=== PATIENT | male | born 1990 | race Caucasian/White ===

== ENCOUNTER 2017-07-07 12:51 | Inpatient (IN) | payer BC, OTHER ==
[~2017-07-07] VITALS: Ht 175.3 cm; Wt 73.5 kg
[2017-07-10] MEDS ORDERED: MIRALAX 17 GM POWD.PACK PO PRN (23:15)
[2017-07-10] MEDS ORDERED: ACETAMINOPHEN 325 MG TABLET PO PRN (23:15)
[2017-07-10] MEDS ORDERED: LOPERAMIDE HCL 2 MG CAPSULE PO PRN ×2 (23:15)
[2017-07-10] MEDS ORDERED: CLONIDINE HCL 0.1 MG TABLET PO PRN (23:15)
[2017-07-10] MEDS ORDERED: MAG HYDROX/AL HYDROX/SIMETH 30 ML LIQUID UDC PO PRN (23:15)
[2017-07-10] MEDS ORDERED: LORAZEPAM 1 MG TABLET PO PRN (23:15)
[2017-07-10] MEDS ORDERED: ONDANSETRON 4 MG/2 ML VIAL IM PRN (23:15)
[2017-07-10] MEDS ORDERED: METHOCARBAMOL 750 MG TABLET PO PRN (23:15)
[2017-07-10] MEDS ORDERED: MAGNESIUM HYDROXIDE 30 ML LIQUID UDC PO PRN (23:15)
[2017-07-10] MEDS ORDERED: ONDANSETRON ODT 4 MG TAB.RAPDIS SL PRN (23:15)
[2017-07-10] MEDS ORDERED: diphenhydrAMINE 50 MG CAPSULE PO PRN (23:15)
[2017-07-10] MEDS ORDERED: HYDROXYZINE PAMOATE 25 MG CAPSULE PO PRN (23:15)
[2017-07-10] MEDS ORDERED: BUPRENORPHINE HCL 2 MG TAB.SUBL SL PRN (23:15)
[2017-07-10] MEDS ORDERED: DICYCLOMINE HCL 20 MG TABLET PO PRN (23:15)
--- NOTE | 2017-07-10 23:15 | NUR ---
Pre admission note Pt seen in intake office. Pt appears mildly intoxicated but in stable condition. V/S WNL. No s/s of distress noted at this time. Respirations even and unlabored. Policies on medication disposal explained to and understood by patient. Will admit to unit. Will continue to monitor.
--- NOTE | 2017-07-10 23:35 | NUR ---
Admission note Pt is a 26 yo male, A+Ox4, presenting to [facility] for Opiate/Meth dependence. Pt has NKA, is on full code status, and on Regular diet. Pt is 5'9" in height and 162 LBS in weight. Pt has medical HX of Left heel SX, Right shoulder SX, Rotator cuff SX, and pelvis FX. Pt has family HX of HTN and stroke from Father. Pt has no primary care provider. Pt has been using Heroin IV for 9 months (4 weeks currently), has reached a level of 0.5gm-1.5gm/daily, and last dose was 0.3gm on 07-10-17 @1800. Pt has been using Methamphetamine IV for 9 months (4 weeks currently), has reached a level of 0.125gm/daily, and last dose was 0.25gm on 07-10-17 @1800. Pt is not taking any home medications. This is the patients first time in treatment. Pt is a former cigarette smoker, last smoked about 4-5 years ago. Pt appears mildly intoxicated upon admission but in stable condition. V/S WNL. No s/s of distress noted at this time. Respirations even and unlabored. Will continue to monitor.
[2017-07-10 23:47] LABS: BASOPHILS % (AUTO) 0.3 % (0.0-2.0); EOSINOPHILS # (AUTO) 0.1 K/uL (0.0-0.7); EOSINOPHILS % (AUTO) 1.7 % (0.0-7.0); HEMOGLOBIN 13.9 g/dL (12.5-16.3); LYMPHOCYTES # (AUTO) 1.1 K/uL (20.0-40.0); LYMPHOCYTES % (AUTO) 14.7 % (20.5-51.5); MEAN CORPUSCULAR HEMOGLOBIN 30.3 uug (23.8-33.4); MEAN CORPUSCULAR HGB CONC 35 g/dL (32.5-36.3); MONOCYTES # (AUTO) 0.8 K/uL (2.0-10.0); MONOCYTES % (AUTO) 9.8 % (0.0-11.0); NEUTROPHILS # (AUTO) 5.7 K/uL (1.8-8.9); NEUTROPHILS % (AUTO) 73.5 % (38.5-71.5); PLATELET COUNT (AUTO) 311 K/uL (152-348); WHITE BLOOD COUNT (AUTO) 7.7 K/uL (3.6-10.2)
[2017-07-11] VITALS (7 sets, daily range): BP systolic 107–130; BP diastolic 62–75
[2017-07-11 00:07] LABS: ALANINE AMINOTRANSFERASE 102 U/L (16-63); ALKALINE PHOSPHATASE 81 U/L (50-136); ASPARTATE AMINOTRANSFERASE 40 U/L (15-37); BILIRUBIN,TOTAL 0.3 mg/dL (0.2-1.0); CARBON DIOXIDE 31 mmol/L (21-32); CHLORIDE 99 mmol/L (98-107); CREATININE 0.8 mg/dL (0.6-1.3); GLUCOSE 125 mg/dL (74-106); MAGNESIUM 1.9 mg/dL (1.8-2.4); POTASSIUM 4.1 mmol/L (3.5-5.1); TOTAL PROTEIN, SERUM 7.3 g/dL (6.4-8.2); UREA NITROGEN, BLOOD 8 mg/dL (7-18)
[2017-07-11 00:42] LABS: *AMPHETAMINE, URINE POSITIVE (NEGATIVE); *BARBITURATE, URINE NEGATIVE (NEGATIVE); *CANNABINOID, URINE NEGATIVE (NEGATIVE); *COCCAINE, URINE NEGATIVE (NEGATIVE); *OPIATE, URINE POSITIVE (NEGATIVE); *PHENCYCLIDINE SCREEN,URINE NEGATIVE (NEGATIVE)
[2017-07-11 00:52] LABS: ETHANOL < 3 MG/DL (0-0)
--- NOTE | 2017-07-11 06:51 | NUR ---
End of shift note Pt is a 26 yo male, A+Ox4, presenting to [facility] for Opiate/Meth dependence. Pt has NKA, is on full code status, and on Regular diet. Pt is on Fall precautions. Pt has medical HX of Left heel SX, Right shoulder SX, Rotator cuff SX, and pelvis FX. Pt is on PRN medications until further evaluation by MD in AM. Pt slept for a total of 4 HRS. Last COWS: 2 @0400. No s/s of distress noted at this time. Respirations even and unlabored. Will endorse to day shift nurse.
--- NOTE | 2017-07-11 07:23 | NUR ---
START OF SHIFT Received report from day shift nurse. Pt is lying in bed resting. He is a 26 yo male admitted to the [facility] on 07/10 for opioid dependence. He is A&O and ambulatory. NKA, full code status, on a regular diet. PMH of left heel surgery, right shoulder surgery, rotator cuff surgery, and pelvis surgery. On admission he reported using heroin 0.5-1.5 grams per day and methamphetamine 0.125 grams per day. Pt last used both substances on 07/10 at 1800. PRN's available for the management of withdrawal symptoms. He is observed in bed with restless legs. Fall precautions in place. Bed is down with call light in reach.
[2017-07-11] MEDS: IBUPROFEN 600 MG TABLET PO PRN (08:11)
--- NOTE | 2017-07-11 08:13 | NUR ---
PRN Clonidine and Motrin Pt reports feeling anxious and restless with a headache. B/P 130/72 and RR 120. Pt denies dizziness or SOB. PRN Clonidine and Motrin administered.
[2017-07-11] MEDS ORDERED: INFLUENZA VACCINE 2017-2018 0.5 ML DISP.SYRIN IM ONE (09:00)
[2017-07-11] MEDS ORDERED: TUBERCULIN,PURIF.PROT.DERIV. 5 TU/0.1 ML TEST ID ONE (09:00)
--- NOTE | 2017-07-11 09:15 | NUR ---
PRN Motrin and Clonidine reassessment PRN Motrin effective. Pt reports headache is relieved. PRN Clonidine somewhat effective. Pt reports feeling less restless. B/P 127/68 and HR 107.
[2017-07-11] MEDS: BUPRENORPHINE HCL 2 MG TAB.SUBL SL SCH ×2 (17:00→21:00)
--- NOTE | 2017-07-11 17:10 | NUR ---
Nursing Note Pt was ordered to start Subutex taper at 1700. His COWS score 6. He states, "I'm not ready for it yet". Dr. Bolivar made aware.
--- NOTE | 2017-07-11 19:22 | NUR ---
END OF SHIFT Report provided to day shift nurse. Pt is in his room resting. He is a 26 yo male admitted to [facility] on 07/10 for opioid dependence. He is A&O x4 and ambulatory. NKA, full code status, on a regular diet. PMH of left heel surgery, right shoulder surgery, rotator cuff surgery, and pelvis surgery. On admission he reported using heroin 0.5-1.5 grams per day and methamphetamine 0.125 grams per day. Pt last used both substances on 07/10 at 1800. PRN's available for the management of withdrawal symptoms. Taper has not started yet. Pt refused his first ordered dose of Subutex at 1700 due to minimal s/s of withdrawal. Dr. Bolivar aware. PRN Clonidine and Motrin administered. Fall precautions in place. Bed is down with call light in reach.
--- NOTE | 2017-07-11 19:23 | NUR ---
Start of shift note Received report from day shift nurse. Pt is a 26 yo male, A+Ox4, presenting to [facility] for Opiate/Meth dependence. Pt has NKA, is on full code status, and on Regular diet. Pt is on Fall precautions. Pt has medical HX of Left heel SX, Right shoulder SX, Rotator cuff SX, and pelvis FX. Pt is on a 5 day Subutex taper, tolerated well. No s/s of distress noted at this time. Respirations even and unlabored. Will continue to monitor.
[2017-07-12 00:41] VITALS: BP 128/71
--- NOTE | 2017-07-12 02:53 | NUR ---
PRN Subutex 4mg Pt c/o opiate withdrawal with COWS: 14. PRN Subutex 4mg given and tolerated well. Will reassess within 30 mins. Will continue to monitor.
[2017-07-12] MEDS ORDERED: BUPRENORPHINE HCL 2 MG TAB.SUBL SL ONE ×2 (03:00→03:06)
--- NOTE | 2017-07-12 03:13 | NUR ---
PRN Subutex 4mg Reassessment Pt noted with COWS: 7 at this time. No s/s of ASE/distress noted at this time. Respirations even and unlabored. will continue to monitor.
[2017-07-12] MEDS: IBUPROFEN 600 MG TABLET PO PRN ×2 (04:35→16:25)
--- NOTE | 2017-07-12 04:36 | NUR ---
PRN Motrin Pt c/o general body pain /10. PRN Motrin givne and tolerated well. Will reassess within 1 HR. Will continue to monitor.
[2017-07-12 04:40] VITALS: BP 137/86
--- NOTE | 2017-07-12 05:35 | NUR ---
PRN Motrin Reassessment Pt expresses reduction in pain to 3/5. No s/s of ASE/distress noted at this time. Respirations even and unlabored. Will continue to monitor.
[2017-07-12 06:06] LABS: HEPATITIS B SURFACE AG Negative (Negative)
--- NOTE | 2017-07-12 07:00 | NUR ---
End of shift note Pt is a 26 yo male, A+Ox4, presenting to [facility] for Opiate/Meth dependence. Pt has NKA, is on full code status, and on Regular diet. Pt is on Fall precautions. Pt has medical HX of Left heel SX, Right shoulder SX, Rotator cuff SX, and pelvis FX. Pt is on 5 day subutex taper, tolerated well. Pt was given PRN Subutex 4mg @0253 and PRN Motrin @0436. Pt slept for a total of 9 HRS. Last COWS: 7 @0400. No s/s of distress noted at this time. Respirations even and unlabored. Will endorse to day shift nurse.
--- NOTE | 2017-07-12 07:46 | NUR ---
BEGINNING OF SHIFT Patient endorsement report received from editorial cartoonist nurse, all pertinent information discussed. Patient is a 26 year old male with admitting Dx: Opiate dependence. and subspace use of: methamphetamine. Patient with ongoing 4 day Subutex taper as ordered. Patient received awake, alert and oriented x4. per editorial cartoonist patient slept for 9 hours. Patient received PRN: Subutex and Motrin as ordered. Patient with last cow score of: 7. Patient was educated regarding plan of care for the day and medication regimen. safety measures in place. call light kept with in reach. will continue to monitor.
[2017-07-12 09:06] VITALS: BP 118/70
[2017-07-12] MEDS: BUPRENORPHINE HCL 2 MG TAB.SUBL SL SCH ×3 (09:09→20:31)
[2017-07-12] MEDS ORDERED: METHYL SALICYLATE/MENTHOL CREAM 28 GM TUBE TOP PRN (11:15)
[2017-07-12 13:33] VITALS: BP 137/79
[2017-07-12] MEDS: BACLOFEN 10 MG TABLET PO SCH ×2 (14:06→20:31)
[2017-07-12] MEDS: GABAPENTIN 300 MG CAPSULE PO SCH ×2 (14:06→20:31)
--- NOTE | 2017-07-12 16:25 | NUR ---
PRN MOTRIN Patient c/o generalized body pain 12/31, provided with NPI with no relief, administered Motrin as ordered, will monitor effectiveness of medication.
--- NOTE | 2017-07-12 17:25 | NUR ---
MOTRIN REASSESSMENT Patient reports medication effective, current pain level 0/10, will continue to monitor.
[2017-07-12 17:37] VITALS: BP 131/74
--- NOTE | 2017-07-12 18:46 | NUR ---
END OF SHIFT Patient alert and oriented x4, vital signs were stable during shift. Patient compliant with therapeutic plan of care. Patient with admitting Dx: etoh dependence, Patient completed Ativan taper as ordered, well tolerated, no ASE noted. Patient is scheduled to be discharge tomorrow morning, noted self motivated towards sobriety. 0900 assessment patient presented with: tremors that can be felt but not seen, and mild anxiety with ciwa score of: 2; 1300 assessment patient presented with: tremors that can be felt but not seen, and mild anxiety with ciwa score of: 2; ; 1700 assessment patient presented with: tremors that can be felt but not seen, and mild anxiety with ciwa score of: 2. Patient encouraged adequate PO fluid intake as tolerated. Patient encouraged to attend group therapies/sessions to learn new coping skills to prevent relapse. Denies any SI/HI. Patient received PRN: Motrin, during shift, effective one hour post administration. Safety measures in place. Call light kept with in reach. Patient endorsed to shift mgr nurse, all pertinent information discussed.
[2017-07-12 20:00] VITALS: BP 133/86
--- NOTE | 2017-07-12 20:00 | NUR ---
Start of Shift Pt is a 26 year old male admitted for Opiate dependence, placed on 4 day Subutex taper. Pt reported using Heroin IV 0.5g 1.5g/daily and Methamphetamine 0.125g/daily. PMH: left heel sx, right shoulder sx, rotator cuff sx and pelvis sx. NKA, regular diet, fall precautions and full code. Upon assessment, pt reports feeling anxious, skin is flushed, nose runny with eyes tearing, stomach cramps, joint/muscle aches, tremors felt upon touch, Respirations even/unlabored, denies SOB/chest pain, denies n/v/d, medications due. Safety measures in place, call light within reach, side rails up x2, bed locked and in low positions. Will continue to monitor.
[2017-07-12] MEDS: CLONIDINE HCL 0.1 MG TABLET PO SCH (20:31)
[2017-07-12] MEDS: TRAZODONE 100 MG TABLET PO SCH (20:31)
[2017-07-13] VITALS: BP 110/73
[2017-07-13 04:00] VITALS: BP 122/71
--- NOTE | 2017-07-13 04:00 | NUR ---
COWS deferred d/t sleeping, to assess while pt is awake as ordered. BP 122/71, pulse 71, resp 17, SpO2 99% room air, temp 97.[address], will continue to monitor.
[2017-07-13] MEDS: IBUPROFEN 600 MG TABLET PO PRN ×2 (06:53→14:19)
--- NOTE | 2017-07-13 06:53 | NUR ---
Motrin 600mg PRN administered for reports of back pain, rated 5/10. Will endorsed onto day shift nurse to monitor effectiveness.
--- NOTE | 2017-07-13 07:08 | NUR ---
End of Shift Pt is a 26 year old male admitted for Opiate dependence, placed on 4 day Subutex taper. Pt reported using Heroin IV 0.5g 1.5g/daily and Methamphetamine 0.125g/daily. PMH: left heel sx, right shoulder sx, rotator cuff sx and pelvis sx. NKA, regular diet, fall precautions and full code. During shift, pt reported feeling anxious, skin flushed, nose runny with eyes tearing, stomach cramps, joint/muscle aches, tremors felt upon touch scheduled taper medications administered, COWS 7. Motrin 600mg PRN administered. Pt slept for 10 hours, intake of ml 500 PO, voids x0 and stool x0. Safety measures in place, call light within reach, side rails up x2, bed locked and in low positions. Endorsed to day shift nurse.
--- NOTE | 2017-07-13 07:22 | NUR ---
BEGINNING OF SHIFT Patient endorsement report received from night warehouse manager nurse, all pertinent information discussed. Patient is a 26 year old male with admitting Dx: Opiate dependence. and subspace use of: methamphetamine. Patient with ongoing 4 day Subutex taper as ordered. Patient received awake, alert and oriented x4. per night warehouse manager patient slept for 10 hours. Patient received PRN: Motrin as ordered. Patient with last cow score of: 7. Patient was educated regarding plan of care for the day and medication regimen. safety measures in place. call light kept with in reach. will continue to monitor.
[2017-07-13 08:14] VITALS: BP 131/64
[2017-07-13] MEDS: GABAPENTIN 300 MG CAPSULE PO SCH ×2 (08:52→14:19)
[2017-07-13] MEDS: BACLOFEN 10 MG TABLET PO SCH ×3 (08:52→20:15)
[2017-07-13] MEDS: CLONIDINE HCL 0.1 MG TABLET PO SCH ×3 (08:56→20:16)
[2017-07-13] MEDS ORDERED: BUPRENORPHINE HCL 2 MG TAB.SUBL SL SCH (09:00)
--- NOTE | 2017-07-13 10:21 | NUR ---
Therapist prompted client about group times. Client stated he will try to attend all groups.
--- NOTE | 2017-07-13 12:13 | NUR ---
PRN TYLENOL Patient reports lower back pain 5/10, provided with NPI, administered Tylenol 650mg PO as ordered, will monitor effectiveness of medication.
--- NOTE | 2017-07-13 12:22 | NUR ---
PRN ELIANA Patient reports lower back pain 5/10, provided with NPI, administered Bengcem as ordered, will monitor effectiveness of medication.
[2017-07-13 12:29] VITALS: BP 110/74
--- NOTE | 2017-07-13 13:13 | NUR ---
TYLENOL REASSESSMENT Patient reports medication effective, current pain level 0/10, will continue to monitor.
--- NOTE | 2017-07-13 13:22 | NUR ---
[facility] REASSESSMENT Patient reports medication effective, current pain level 0/10, will continue to monitor.
[2017-07-13] MEDS: BUPRENORPHINE HCL 2 MG TAB.SUBL SL SCH ×2 (14:18→20:16)
--- NOTE | 2017-07-13 14:19 | NUR ---
PRN MOTRIN Patient c/o back pain 12/31, provided with NPI with no relief, administered Motrin as ordered, will monitor effectiveness of medication.
--- NOTE | 2017-07-13 15:19 | NUR ---
MOTRIN REASSESSMENT Patient reports medication effective, current pain level 0/10, will continue to monitor.
[2017-07-13 17:52] VITALS: BP 124/67
--- NOTE | 2017-07-13 18:59 | NUR ---
END OF SHIFT Patient alert and oriented x4, vital signs were stable during shift. Patient compliant with therapeutic plan of care. Patient continues with ongoing 4 day Subutex taper as ordered, well tolerated, no ASE noted. Detox medication effective at reducing withdrawal symptoms. 0900 assessment patient presented with: c/o chills, difficultly sitting still, dilated pupils, mild bone and joint aches, and nasal stuffiness with cow score of: 6; 1300 assessment patient presented with: heart rate of 85, difficulty sitting still, dilated pupils, mild bone and joint aches, and mild anxiety with cow score of: 5; 1700 assessment patient presented with: heart rate of 86, difficulty sitting still, dilated pupils, mild bone and joint aches, and mild anxiety with cow score of: 5. Patient encouraged adequate PO fluid intake as tolerated. Patient encouraged to attend group therapies/sessions to learn new coping skills to prevent relapse. Denies any SI/HI. Patient received PRN: Motrin, Bengay, and Tylenol, during shift, effective one hour post administration. Safety measures in place. Call light kept with in reach. Patient endorsed to orthotics assistant nurse, all pertinent information discussed.
[2017-07-13 20:00] VITALS: BP 113/69
--- NOTE | 2017-07-13 20:00 | NUR ---
Start of Shift Pt is a 26 year old male admitted for Opiate dependence, placed on 4 day Subutex taper. Pt reported using Heroin IV 0.5g 1.5g/daily and Methamphetamine 0.125g/daily. PMH: left heel sx, right shoulder sx, rotator cuff sx and pelvis sx. NKA, regular diet, fall precautions and full code. Upon assessment, pt reports feeling restless, nose runny with eyes tearing, joint/muscle aches, tremors felt upon touch, Respirations even/unlabored, denies SOB/chest pain, denies n/v/d. Safety measures in place, call light within reach, side rails up x2, bed locked and in low positions. Will continue to monitor.
[2017-07-13] MEDS: TRAZODONE 100 MG TABLET PO SCH (20:15)
[2017-07-13] MEDS ORDERED: GABAPENTIN 300 MG CAPSULE PO SCH (21:00)
[2017-07-14] VITALS: BP 118/73
[2017-07-14 04:00] VITALS: BP 106/71
--- NOTE | 2017-07-14 04:00 | NUR ---
COWS deferred d/t sleeping, to assess while pt is awake as ordered. BP 106/71, pulse 81, resp 16, SpO2 97% room air, temp 97.[address], will continue to monitor.
--- NOTE | 2017-07-14 07:00 | NUR ---
End of Shift Pt is a 26 year old male admitted for Opiate dependence, placed on 4 day Subutex taper. Pt reported using Heroin IV 0.5g 1.5g/daily and Methamphetamine 0.125g/daily. PMH: left heel sx, right shoulder sx, rotator cuff sx and pelvis sx. NKA, regular diet, fall precautions and full code. During shift, pt reported feeling restlessness, nose runny with eyes tearing, joint/muscle aches, tremors felt upon touch scheduled taper medications administered, COWS 6. No PRN medications administered during shift. Pt slept for 9 hours, intake of 750 ml PO, voids x2 and stool x0. Safety measures in place, call light within reach, side rails up x2, bed locked and in low positions. Endorsed to day shift nurse.
--- NOTE | 2017-07-14 07:24 | NUR ---
BEGINNING OF SHIFT Patient endorsement report received from fast food shift lead nurse, all pertinent information discussed. Patient is a 26 year old male with admitting Dx: Opiate dependence. and substace use of: methamphetamine. Patient with ongoing 4 day Subutex taper as ordered. Patient received awake, alert and oriented x4. per fast food shift lead patient slept for 9 hours. Patient received no PRN medications. Patient with last ciwa score of: 6. Patient was educated regarding plan of care for the day and medication regimen. safety measures in place. call light kept with in reach. will continue to monitor.
[2017-07-14 08:06] VITALS: BP 121/72
[2017-07-14] MEDS: GABAPENTIN 300 MG CAPSULE PO SCH ×3 (08:42→20:50)
[2017-07-14] MEDS: CLONIDINE HCL 0.1 MG TABLET PO SCH ×3 (08:42→20:51)
[2017-07-14] MEDS: IBUPROFEN 600 MG TABLET PO PRN (08:42)
[2017-07-14] MEDS: BACLOFEN 10 MG TABLET PO SCH ×3 (08:42→20:51)
--- NOTE | 2017-07-14 08:42 | NUR ---
PRN MOTRIN Patient c/o back pain 12/31, provided with NPI with no relief, administered Motrin as ordered, will monitor effectiveness of medication.
[2017-07-14] MEDS: BUPRENORPHINE HCL 2 MG TAB.SUBL SL SCH ×3 (08:43→20:50)
--- NOTE | 2017-07-14 09:42 | NUR ---
MOTRIN REASSESSMENT Patient reports medication effective, current pain level 0/10, will continue to monitor.
--- NOTE | 2017-07-14 10:00 | NUR ---
ENDORSED CARE Patient endorsed to staff nurse, all pertinent information discussed. All information given. Patient not in distress at this time, vital signs WNL.
[2017-07-14 12:00] VITALS: BP 129/77
[2017-07-14] MEDS: KETOROLAC TROMETHAMINE 30 MG INJ IM PRN (13:08)
[2017-07-14 16:00] VITALS: BP 112/56
--- NOTE | 2017-07-14 18:49 | NUR ---
End of Shift Report given to second shift supervisor nurse. Pt is a 26 year old male admitted for Opiate dependence, placed on 4 day Subutex taper tolerating well. Pt reports No known allergies, is Full Code and on a Regular Diet, placed on fall and seizure precautions. Pts VS monitored closely q 4 hours. Withdrawal symptoms were closely monitored. Initial COWS 5 . Patient encouraged adequate PO fluid intake as tolerated. Patient presented with tremors and anxiety during the day. Last COWS 3. Per patient, Subutex been helping him with his withdrawal symptoms. Pt ate all of his meals. Pt received PRN medications Toradol IM for pain medication was effective, Pt is in stable condition. Pt encouraged to drink more fluids to help facilitate with detox process. Patient encouraged to attend group therapies/sessions to learn new coping skills to recent relapse, patient denies SI/HI. Participated in group and therapy sessions. All needs met and attended
[2017-07-14 20:00] VITALS: BP 117/78
--- NOTE | 2017-07-14 20:00 | NUR ---
Start of Shift Pt is a 26 year old male admitted for Opiate dependence, placed on 4 day Subutex taper. Pt reported using Heroin IV 0.5g 1.5g/daily and Methamphetamine 0.125g/daily. PMH: left heel sx, right shoulder sx, rotator cuff sx and pelvis sx. NKA, regular diet, fall precautions and full code. Upon assessment, pt reports feeling restless, with muscle aches throughout body, respirations even/unlabored, denies SOB/chest pain, denies n/v/d. Safety measures in place, call light within reach, side rails up x2, bed locked and in low positions. Will continue to monitor.
[2017-07-14] MEDS: TRAZODONE 100 MG TABLET PO SCH (20:51)
--- NOTE | 2017-07-15 | NUR ---
COWS deferred d/t sleeping, to assess while pt is awake as ordered. Pt refused to be woken up for 0000 VS Safety measures in place, will continue to monitor.
--- NOTE | 2017-07-15 04:00 | NUR ---
COWS deferred d/t sleeping, to assess while pt is awake as ordered. Pt refused to be woken up for [address], will continue to monitor.
--- NOTE | 2017-07-15 07:00 | NUR ---
End of Shift Pt is a 26 year old male admitted for Opiate dependence, placed on 4 day Subutex taper. Pt reported using Heroin IV 0.5g 1.5g/daily and Methamphetamine 0.125g/daily. PMH: left heel sx, right shoulder sx, rotator cuff sx and pelvis sx. NKA, regular diet, fall precautions and full code. During shift, pt reported feeling restless, with muscle aches throughout body scheduled taper medications administered during shift, effective in management of s/s of withdrawal as reported per pt, COWS 3. No PRN medications administered during shift. Pt slept for 11 hours, intake of 250 ml PO, voids x1 and stool x0. Safety measures in place, call light within reach, side rails up x2, bed locked and in low position. Endorsed to day shift nurse.
--- NOTE | 2017-07-15 07:50 | NUR ---
START OF SHIFT RECEIVED PT RESTING IN BED WITH FLAT AFFECT, A/O X4, RESPIRATIONS EVEN AND UNLABORED. PT REPORTS HAVING GENERALIZED BODY ACHES AND BACK PAIN BEING THE WORST. PT REPORTS FEELING RESTLESS AND HAVE NOT HAD GOOD SLEEP THE NIGHT BEFORE. DENIES SOB, AND N/V. ENCOURAGED PT TO DRINK MORE FLUIDS TO FACILITATE DETOX PROCESS. SIDE RAILS UP X2, BED IN LOWEST POSITION. CALL LIGHT WITHIN REACH. WILL CONTINUE TO MONITOR AND PROVIDE SUPPORT.
[2017-07-15 08:00] VITALS: BP 113/72
[2017-07-15] MEDS ORDERED: BUPRENORPHINE HCL 2 MG TAB.SUBL SL SCH (09:00)
[2017-07-15] MEDS: GABAPENTIN 300 MG CAPSULE PO SCH ×3 (09:00→21:24)
[2017-07-15] MEDS: BACLOFEN 10 MG TABLET PO SCH ×3 (09:02→21:24)
[2017-07-15] MEDS: CLONIDINE HCL 0.1 MG TABLET PO SCH ×3 (09:03→21:31)
--- NOTE | 2017-07-15 09:06 | NUR ---
PRN PT C/O HEARTBURN AND REQUESTED MAALOX. MAALOX PO PRN GIVEN. WILL CONTINUE TO MONTIOR.
[2017-07-15] MEDS: KETOROLAC TROMETHAMINE 30 MG INJ IM PRN (09:18)
--- NOTE | 2017-07-15 09:18 | NUR ---
PRN PT C/O OF SEVERE BACK PAIN 04/02. TORADOL 30 MG IM INJ PRN GIVEN.
--- NOTE | 2017-07-15 09:48 | NUR ---
REASSESSMENT PT STATED MEDICATION WAS EFFECTIVE UPON REASSESSMENT. WILL CONTINUE TO MONITOR. Addendum: 07/15/17 at 1811 by JUAN DIEGO GRUBBS RN FOR TORADOL
--- NOTE | 2017-07-15 10:06 | NUR ---
REASSESSMENT PT STATED THE MAALOX WAS SLIGHTLY EFFECTIVE. WILL CONTINUE TO MONITOR AND PROVIDE SUPPORT.
[2017-07-15 12:00] VITALS: BP 109/66
--- NOTE | 2017-07-15 14:24 | NUR ---
PRN PT C/O STOMACH CRAMPS AND ADMINISTERED DICYCLOMINE PO PRN. WILL CONTINUE TO MONITOR.
[2017-07-15] MEDS ORDERED: METH-406 PO (14:53)
[2017-07-15] MEDS ORDERED: GABA-534 PO (14:53)
[2017-07-15] MEDS ORDERED: HYDR-3895 PO (14:53)
[2017-07-15] MEDS ORDERED: DIPH50CA37 PO (14:53)
[2017-07-15] MEDS ORDERED: DICY20TA28 PO (14:53)
[2017-07-15] MEDS ORDERED: IBUP-1955 PO (14:53)
[2017-07-15] MEDS ORDERED: CLON0.1T14 PO (14:53)
[2017-07-15] MEDS ORDERED: TRAZ-147 PO (14:53)
--- NOTE | 2017-07-15 15:25 | NUR ---
REASSESSMENT PT IS RESTING IN BED WITH HIS EYES CLOSED AT THIS TIME. WILL CONTINUE TO MONITOR.
[2017-07-15 16:00] VITALS: BP 104/57
--- NOTE | 2017-07-15 19:27 | NUR ---
END OF SHIFT PT RESTING IN BED WITH FLAT AFFECT, A/O X4, RESPIRATIONS EVEN AND UNLABORED. PT REPORTS HAVING GENERALIZED BODY ACHES AND STOMACH DISCOMFORT. PT REPORTS FEELING RESTLESS AND MILD ANXIETY. DENIES SOB, AND N/V. PT FINISHED SUBUTEX TAPER TODAY AND HE IS TO BE D/C TOMORROW. ENCOURAGED PT TO DRINK MORE FLUIDS TO FACILITATE DETOX PROCESS. SIDE RAILS UP X2, BED IN LOWEST POSITION. CALL LIGHT WITHIN REACH. WILL GIVE ALL ENDORSEMENT AND PERTINENT INFORMATION TO BOX STACKER NURSE.
--- NOTE | 2017-07-15 19:30 | NUR ---
Start of Shift Pt is a 26 year old male admitted for Opiate dependence, has completed 4 day Subutex taper and is scheduled for DC tomorrow.Pt is A/O X 4,has NKA, regular diet, fall precautions and full code.Pt received in stable condition,sleeping in bed,breathing is even and non labored,no s/s of distress noted. Safety measures in place, call light within reach, side rails up x2, bed locked and in low positions. Will continue to monitor.
[2017-07-15 20:00] VITALS: BP 125/73
[2017-07-15] MEDS: TRAZODONE 100 MG TABLET PO SCH (21:24)
--- NOTE | 2017-07-16 | NUR ---
V/S REFUSED; COWS DEFERRED. PT IS IN DEEP SLEEP. DID NOT WANT TO BE WOKEN UP FOR V/S IF SLEEPING.COWS DEFERRED DUE TO SLEEP.BREATHING IS EVEN AND NON LABORED.NO S/S OF DISTRESS NOTED,WILL CONTINUE TO MONITOR.
--- NOTE | 2017-07-16 04:00 | NUR ---
V/S REFUSED; COWS DEFERRED. PT REMAINS FAST ASLEEP. DID NOT WANT TO BE WOKEN UP FOR V/S IF SLEEPING.COWS DEFERRED DUE TO SLEEP.BREATHING IS EVEN AND NON LABORED.NO S/S OF DISTRESS NOTED,WILL CONTINUE TO MONITOR.
--- NOTE | 2017-07-16 06:48 | NUR ---
End of Shift Pt is a 26 year old male admitted for Opiate dependence, has completed 4 day Subutex taper and is scheduled for DC today.Pt is A/O X 4,has NKA, regular diet, fall precautions and full code.Pt is in stable condition,sleeping in bed,breathing is even and non labored,no s/s of distress noted.No PRN meds given this shift;Pt slept 11 hrs,fluid intake was 100mls,no urine voided. Safety measures in place, call light within reach, side rails up x2, bed locked and in low positions. Will continue to monitor. Addendum: 07/16/17 at 0653 by IVANIA LUONG RN LAST COWS=3.
--- NOTE | 2017-07-16 07:30 | NUR ---
START OF SHIFT NOTE Received report from night nurse, 26 year old male admitted for Opiate dependence. Patient completed his 4 day Subutex taper tolerated well. Per endorsement pt did not receive any PRN'S last Last CIWA score was 3, slept for 11 hours, schedule for discharge today. Patient received awake, alert and oriented x4. Patient was educated regarding plan of care for the day and medication regimen. Safety measures in place. call light with in reach. Will continue to monitor.
[2017-07-16 08:00] VITALS: BP 112/66
[2017-07-16] MEDS: BACLOFEN 10 MG TABLET PO SCH (08:56)
[2017-07-16] MEDS: GABAPENTIN 300 MG CAPSULE PO SCH (08:56)
[2017-07-16 08:57] VITALS: BP 115/72
[2017-07-16] MEDS: CLONIDINE HCL 0.1 MG TABLET PO SCH (08:57)
--- NOTE | 2017-07-16 09:15 | NUR ---
DISCHARGE NOTE Patient is in stable condition. Vital signs WNL,Patient is alert oriented x4, Skin intact warm and dry tot touch. Patient denies any SI/HI ideations. All discharge paper work done signed and dated. Patient educated about discharge instructions, Pt verbalized understanding. Patient 's last COWS score was 2. Patient discharged from [facility] on 07/16/17 at 0915. Patient left the building with all of his belongings and prescriptions, Patient did not bring any medications with him to the unit. has been contracted and notified of Pt's discharge.
== END 2017-07-16 09:15 | disposition other institution (70) | DRG 895 ==
LOC: SRC 07-08 08:57 → UNDOADMIN 07-08 08:57 → SRC 07-10 22:27
PROVIDERS: ADMIT Internal Medicine; ATTEND Internal Medicine
PROC: HZ2ZZZZ Detoxification Services for Substance Abuse Treatment (ICD-10-PCS; principal; 2017-07-10)
PROC: HZ31ZZZ Individual Counseling for Substance Abuse Treatment, Behavioral (ICD-10-PCS; 2017-07-12)
PROC: HZ41ZZZ Group Counseling for Substance Abuse Treatment, Behavioral (ICD-10-PCS; 2017-07-13)
DX: F11.23 Opioid dependence with withdrawal (principal); F15.288 Other stimulant dependence with other stimulant-induced disorder; F15.220 Other stimulant dependence with intoxication, uncomplicated; F41.9 Anxiety disorder, unspecified; Z81.1 Family history of alcohol abuse and dependence; Z82.49 Family history of ischemic heart disease and other diseases of the circulatory system; R73.9 Hyperglycemia, unspecified; R74.0 Nonspecific elevation of levels of transaminase and lactic acid dehydrogenase [LDH]
CPT/HCPCS: 36415; 70030-TC; 80307; 80324; 80361; 83735; 85025; 86580; 86592; 86705; 86803; 87340; 87806; 90686; A4663; G0480; J1885

== ENCOUNTER 2017-09-19 08:12 | Inpatient (IN) | payer BC, OTHER ==
[~2017-09-19] VITALS: Ht 177.8 cm; Wt 74.8 kg
[~2017-09-19 08:12] MED LIST: CLON0.1T14 PO; DICY20TA28 PO; DIPH50CA37 PO; GABA-534 PO; HYDR-3895 PO; IBUP-1955 PO; METH-406 PO; TRAZ-147 PO
[2017-09-19 21:08] VITALS: BP 137/86
--- NOTE | 2017-09-19 21:08 | NUR ---
PRE-ADMISSION VS BP-137/86 T-97.9 P-105, R-18 PA-0/10. SpO2 AT 97% IN RA. PATIENT AMBULATORY AND GAIT IS STEADY. SPEECH IS CLEAR AND ANSWER QUESTIONS APPROPRIATELY. NO KNOWN ALLERGIES TO FOOD OR MEDICATION. NO SEIZURE HISTORY. PATIENT STATES HES HERE FOR HEROIN IV AND METHAMPHETAMINE IV. WILL CONTINUE ADMISSION ON 3RD FLOOR
[2017-09-19 21:16] LABS: *AMPHETAMINE, URINE POSITIVE (NEGATIVE); *BARBITURATE, URINE NEGATIVE (NEGATIVE); *CANNABINOID, URINE NEGATIVE (NEGATIVE); *COCCAINE, URINE NEGATIVE (NEGATIVE); *OPIATE, URINE POSITIVE (NEGATIVE); *PHENCYCLIDINE SCREEN,URINE NEGATIVE (NEGATIVE)
--- NOTE | 2017-09-19 21:24 | NUR ---
ADMISSION NOTE PATIENT IS A 27 YEAR OLD MALE ADMITTED TO [facility] FOR SUPERVISED WITHDRAWAL FROM OPIATE. HEIGHT IS 510 AND WEIGHT IS 165 LBS. BODY CHECK DONE . SKIN INTACT. RESPIRATION EVEN AND UNLABORED. LUNGS CLEAR AND ABDOMEN SOFT AND NON-DISTENDED. BOWEL SOUNDS ACTIVE ON ALL QUADRANT. PATIENT REPORTS PMH OF ANXIETY, DEPRESSION, PTSD, RIGHT SHOULDER SURGERY AND LEFT HEEL SURGERY. PATIENT IS HERE BECAUSE HE STATES I WILL IF I DON'T COME HERE". SUBSTANCE ABUSE HISTORY 1.HEROIN IV-STARTED USING AT AGE 25. HE INJECTS 1-3 GRAMS DAILY FOR A MONTH . LAST USE WAS GRAM AT 2 PM ON 09/19/17 2.METHAMPHETAMINE IV-STARTED USING AT AGE 25. HE INJECTS 1/4-1/2 GRAM DAILY FOR A MONTH. LAST USE WAS GRAM AT 2-4 PM ON 09/19/17 TREATMENT HISTORY 1.[facility]- JUL 2017 2.[facility]-07/10/17-07/16/17 PATIENT REQUESTED TO BE FULL CODE AND ON REGULAR DIET. PATIENT DOES NOT HAVE PCP. DENIES SI/HI. HIS LONGEST PERIOD OF SOBRIETY WAS 35 DAYS IN MAR 2017. PATIENT INTOXICATED. PATIENT ANXIOUS, FLUSHED, FIDGETY AND RESTLESS . COWS 4. PATIENT HAD FLU VACCINE ON 06/2017. PATIENT REFUSED PNEUMONIA VACCINE , EXPLAINED RISKS/BENEFITS BUT STILL REFUSED. PLACED ON FALL PRECAUTION. SAFETY MEASURES IN PLACE. CALL LIGHT IN REACH. WILL CONTINUE TO MONITOR.
[2017-09-19] MEDS ORDERED: MAGNESIUM HYDROXIDE 30 ML LIQUID UDC PO PRN (21:30)
[2017-09-19] MEDS ORDERED: ONDANSETRON ODT 4 MG TAB.RAPDIS SL PRN (21:30)
[2017-09-19] MEDS ORDERED: ACETAMINOPHEN 325 MG TABLET PO PRN (21:30)
[2017-09-19] MEDS ORDERED: MIRALAX 17 GM POWD.PACK PO PRN (21:30)
[2017-09-19] MEDS ORDERED: CLONIDINE HCL 0.1 MG TABLET PO PRN (21:30)
[2017-09-19] MEDS ORDERED: ONDANSETRON 4 MG/2 ML VIAL IM PRN (21:30)
[2017-09-19] MEDS ORDERED: diphenhydrAMINE 50 MG CAPSULE PO PRN (21:30)
[2017-09-19] MEDS ORDERED: MAG HYDROX/AL HYDROX/SIMETH 30 ML LIQUID UDC PO PRN (21:30)
[2017-09-19] MEDS ORDERED: LOPERAMIDE HCL 2 MG CAPSULE PO PRN ×2 (21:30)
[2017-09-19] MEDS ORDERED: BUPRENORPHINE HCL 2 MG TAB.SUBL SL PRN (21:30)
[2017-09-19 22:40] LABS: BASOPHILS % (AUTO) 0.7 % (0.0-2.0); EOSINOPHILS % (AUTO) 4.1 % (0.0-7.0); HEMATOCRIT 41.7 % (36.7-47.1); HEMOGLOBIN 14.1 g/dL (12.5-16.3); LYMPHOCYTES % (AUTO) 32.1 % (20.5-51.5); MEAN CORPUSCULAR HEMOGLOBIN 29.2 uug (23.8-33.4); MEAN CORPUSCULAR HGB CONC 34 g/dL (32.5-36.3); MEAN CORPUSCULAR VOLUME 86.2 fL (73.0-96.2); NEUTROPHILS % (AUTO) 55.1 % (38.5-71.5); PLATELET COUNT (AUTO) 424 K/uL (152-348); RED BLOOD CELL COUNT(AUTO) 4.84 MIL/uL (4.06-5.63); WHITE BLOOD COUNT (AUTO) 6.2 K/uL (3.6-10.2)
[2017-09-19 22:41] LABS: EOSINOPHILS # (AUTO) 0.3 K/uL (0.0-0.7); MONOCYTES # (AUTO) 0.5 K/uL (2.0-10.0); NEUTROPHILS # (AUTO) 3.4 K/uL (1.8-8.9)
[2017-09-19 23:00] LABS: ETHANOL < 3 MG/DL (0-0)
[2017-09-19 23:04] LABS: ALANINE AMINOTRANSFERASE 56 U/L (16-63); ALKALINE PHOSPHATASE 82 U/L (50-136); AMYLASE 48 U/L (25-115); ASPARTATE AMINOTRANSFERASE 29 U/L (15-37); BILIRUBIN,TOTAL 0.3 mg/dL (0.2-1.0); CARBON DIOXIDE 31 mmol/L (21-32); CHLORIDE 99 mmol/L (98-107); CREATININE 0.8 mg/dL (0.6-1.3); GLUCOSE 116 mg/dL (74-106); LIPASE 95 U/L (73-393); MAGNESIUM 1.8 mg/dL (1.8-2.4); POTASSIUM 4.1 mmol/L (3.5-5.1); TOTAL PROTEIN, SERUM 7.5 g/dL (6.4-8.2); UREA NITROGEN, BLOOD 17 mg/dL (7-18)
[2017-09-19 23:12] LABS: THYROID STIMULATING HORMONE 1.721 mIU/mL (0.358-3.740)
[2017-09-20] MEDS ORDERED: QUET100T PO (03:04)
[2017-09-20] MEDS ORDERED: NEOM28.38 TP (03:04)
[2017-09-20 04:00] VITALS: BP 103/70
--- NOTE | 2017-09-20 04:00 | NUR ---
COWS DEFERRED PATIENT IN BED WITH EYE CLOSED. COWS DEFERED. RESPIRATION EVEN AND UNLABORED. WILL CONTINUE TO MONITOR
[2017-09-20] MEDS: IBUPROFEN 400 MG TABLET PO PRN ×2 (05:49→15:15)
--- NOTE | 2017-09-20 05:49 | NUR ---
PRN MOTRIN ADMINISTRATION PATIENT C/O BACK PAIN 11/30. WILL MONITOR FOR EFFECTIVENESS
--- NOTE | 2017-09-20 06:49 | NUR ---
PRN MOTRIN RE-ASSESSMENT PATIENT STATES MOTRIN IS HELPFUL AND EFFECTIVE. NO PAIN AT THIS TIME. WILL CONTINUE TO MONITOR.
--- NOTE | 2017-09-20 07:06 | NUR ---
END OF SHIFT NOTE PATIENT SLEPT 4 HOURS. FLUID INTAKE 1,096 ML. VOIDED X 1. NO BM. PATIENT IS A 27 YEAR OLD ADMITTED FOR OPIATE WITHDRAWAL. PATIENT WAS ANXIOUS, FIDGETY, RESTLESS AND FLUSHED UPON ADMISSION BUT HE STATES HES NOT FULLY WITHDRAWING YET . PATIENT WAS GIVEN PRN FOR MOTRIN GIVEN FOR BACK PAIN AND EFFECTIVE. SAFETY MEASURES IN PLACE. CALL LIGHT IN REACH. WILL CONTINUE TO MONITOR. LAST COWS 5.
--- NOTE | 2017-09-20 07:15 | NUR ---
START OF SHIFT PATIENT IS A 27 YR OLD ADMITTED ON 09/19/17 FOR WITHDRAWAL FROM OPIATES. PRN MOTRIN GIVEN ON PM SHIFT. PATIENT STATES HE IS STARTING TO WITHDRAW NOW SO WILL START TAPER SOON MD SEES PATIENT. LAST COWS 5. SAFETY MEASURES IN PLACE. BED LOW AND LOCKED , SIDE RAILS UP X 2. WILL CONTINUE TO FOLLOW MD PLAN OF CARE.
[2017-09-20 08:00] VITALS: BP 123/67
[2017-09-20] MEDS: METHOCARBAMOL 750 MG TABLET PO PRN (08:37)
[2017-09-20] MEDS: MULTIVITAMINS,THERAPEUTIC TABLET PO SCH (08:37)
--- NOTE | 2017-09-20 08:37 | NUR ---
PRN ROBAXIN 750MG PO GIVEN FOR C/O BACK PAIN PT STATES IT IS NOT RELATED TO HIS WITHDRAWAL, ALSO GAVE WARM/COLD PACKS FOR COMFORT, WILL REASSESS
[2017-09-20] MEDS ORDERED: TUBERCULIN,PURIF.PROT.DERIV. 5 TU/0.1 ML TEST ID ONE (09:00)
--- NOTE | 2017-09-20 09:00 | NUR ---
PPD TEST REFUSED
--- NOTE | 2017-09-20 09:37 | NUR ---
PRN REASSESS ROBAXIN 750MG PO EFFECTIVE SOMEWHAT, PAIN REDUCED TO 5/10, PT STATES HE HAS A PINCHED NERVE IN HIS BACK, WILL ASK MD FOR ELIANA WEBER, WARM PACK IS HELPING, WILL CONTINUE TO MONITOR
[2017-09-20 12:00] VITALS: BP 119/66
[2017-09-20] MEDS: GABAPENTIN 300 MG CAPSULE PO SCH ×2 (15:15→20:20)
--- NOTE | 2017-09-20 15:15 | NUR ---
PRN MEDS CLONIDINE O.1MG PO/MOTRIN 600MG PO/TYLENOL 650MG PO GIVEN FOR INCREASED BP 143/84 AND BACK PINCHED NERVE PAIN WILL REASSESS
[2017-09-20 16:00] VITALS: BP 104/56
--- NOTE | 2017-09-20 16:15 | NUR ---
PRN REASSESS CLONIDINE , MOTRIN AND TYLENOL PO ALL EFFECTIVE BP 104/56 HR 60, PT STATES PAIN LEVEL IN BACK IS 4/10 NOW WILL CONTINUE TO MONITOR
--- NOTE | 2017-09-20 18:42 | NUR ---
END OF SHIFT: PATIENT IS A 27 YEAR OLD MALE ADMITTED TO [facility] ON 09/19/17 FOR WITHDRAWAL FROM OPIATES. PATIENT HAS NOT STARTED HIS SUBUTEX TAPER OF YET, PRN SUBUTEX IS AVAILABLE WHEN PT IS READY AND SCHEDULED TAPER WILL START TOMORROW 09/21/17. PATIENT PRESENTS WITH WARM , CLAMMY SKIN, RESTLESS LEGS, LETHARGY AND ENLARGED PUPILS. PRN MEDICATIONS GIVEN THIS SHIFT : ROBAXIN , CLONIDINE, MOTRIN AND TYLENOL. LAST COWS 6 AND CIWA 7 @ 1600. FLUID INTAKE THIS SHIFT 1400 ML, 3 VOIDS AND 0 BM. SAFETY MEASURES IN PLACE, SIDE RAILS UP X 2 AND CALL LIGHT WITHIN REACH. FOLLOW MD PLAN OF CARE.
--- NOTE | 2017-09-20 19:40 | NUR ---
Start of Shift Pt is a 27 year old male admitted for Opiate dependence, placed on 4 day Subutex taper - to be started on 09/21/2017 0900 AM. Upon assessment, pt presents in room in bed, alert/oriented x3, Pt is unshaven, flushed and clammy skin, anxious, fatigue, withdrawn, yawning, COWS 8, BP 121/81, pulse 85, resp 18, Spo2 99% room air, temp 98.2. Scheduled medications due. Safety measures in place, will continue to monitor.
[2017-09-20 20:00] VITALS: BP 121/81
[2017-09-20] MEDS: QUETIAPINE FUMARATE 100 MG TABLET PO SCH (20:20)
[2017-09-21] VITALS: BP 109/72
--- NOTE | 2017-09-21 | NUR ---
COWS deferred d/t pt sleeping, to assess while pt is awake as ordered. BP 109/72, pulse 74, resp 16, Spo2 99% RA, temp 97.[address], will continue to monitor.
[2017-09-21 04:00] VITALS: BP 130/72
--- NOTE | 2017-09-21 04:00 | NUR ---
PRN Administration Subutex 4mg PRN administered for COWS 13. Pt presents with a flushed face, clammy skin, chills throughout body, body aches/muscle aches, eyes tearing, nose stuffy. Safety measures in place, will continue to monitor.
[2017-09-21] MEDS ORDERED: BUPRENORPHINE HCL 2 MG TAB.SUBL SL PRN (04:15)
--- NOTE | 2017-09-21 04:30 | NUR ---
PRN Reassessment Upon reassessment, pt is sleeping, eyes closed in bed, respirations 16. Unable to reassess, COWS score, to assess while pt is awake. Safety measures in place, will continue to monitor
--- NOTE | 2017-09-21 07:00 | NUR ---
End of Shift Pt is a 27 year old male admitted for Opiate dependence, placed on 4 day Subutex taper - to be started on 09/21/2017 0900 AM. During shift, pt presented in room in bed, alert/oriented x3, Pt unshaven, flushed and clammy skin, anxious, fatigue, withdrawan, yawning - scheduled taper medications administered. At 0400, Subutex 4mg PRN administered for COWS 13. Upon reassessment, pt was noted to be sleeping, unable to reassess COWS score. Pt encouraged to participates in treatment program. Pt slept for 7 hours, intake of 1296 ml PO, voids x2 and stool x0. Safety measures in place, endorsed to day shift nurse.
[2017-09-21 08:00] VITALS: BP 116/62
[2017-09-21 08:08] LABS: HEPATITIS B SURFACE AG Negative (Negative)
[2017-09-21] MEDS ORDERED: HYDROXYZINE PAMOATE 25 MG CAPSULE PO PRN (09:00)
[2017-09-21] MEDS ORDERED: 4 DAY TAPER BUPRENORPHINE -SERENITY PROTOCOL SL PRN (09:00)
[2017-09-21] MEDS: MULTIVITAMINS,THERAPEUTIC TABLET PO SCH (09:07)
[2017-09-21] MEDS: GABAPENTIN 300 MG CAPSULE PO SCH ×3 (09:07→21:02)
[2017-09-21] MEDS: BUPRENORPHINE HCL 2 MG TAB.SUBL SL SCH ×3 (09:07→21:02)
[2017-09-21] MEDS: HYDROXYZINE PAMOATE 25 MG CAPSULE PO PRN ×2 (09:13→13:23)
--- NOTE | 2017-09-21 09:13 | NUR ---
PRN VISTARIL Patient complained of anxiety, PRN vistaril given. Will continue to monitor patient.
--- NOTE | 2017-09-21 09:15 | NUR ---
START OF SHIFT Patient is 27 year old male admitted for medically supervised withdrawal from heroin. Patient is full code with NKA. Patient on Subutex taper which started today. Most recent COWS: 11. Patient's vitals signs WNL. Patient reports anxiety, tremors, stuffy nose, chills, body aches and stomach cramps. Frequent yawning and goose bumps noted. Compliant with meds this shift. PRN Vistaril given for anxiety. Patient reports last BM was 2 days ago. Patient has steady gait and goes out for patio break with escort. Encouraged to attend group meetings today. Will continue to monitor patient.
--- NOTE | 2017-09-21 10:13 | NUR ---
REASSESSMENT PRN VISTARIL Patient reports anxiety resolved at this time.
[2017-09-21 12:00] VITALS: BP 139/79
[2017-09-21] MEDS: IBUPROFEN 400 MG TABLET PO PRN ×2 (13:23→21:02)
[2017-09-21] MEDS: DICYCLOMINE HCL 20 MG TABLET PO PRN (13:24)
--- NOTE | 2017-09-21 13:24 | NUR ---
PRN BENTYL, IBUPROFEN AND HYDROXYZINE Patient complained of stomach cramps, body aches and anxiety. PRN bentyl, ibuprofen and hydroxyzine given. Will continue to monitor patient.
--- NOTE | 2017-09-21 13:30 | NUR ---
Therapist prompted client about group times. Client stated he will try to attend groups tomorrow as he wants to rest today.
--- NOTE | 2017-09-21 14:24 | NUR ---
REASSESSMENT PRN BENTYL, IBUPROFEN AND HYDROXYZINE Patient reports stomach cramps resolved, body aches decreased to 2/10 and anxiety resolved at this time.
[2017-09-21 16:00] VITALS: BP 102/63
--- NOTE | 2017-09-21 19:12 | NUR ---
END OF SHIFT Patient is 27 year old male admitted for medically supervised withdrawal from heroin. Patient is full code with NKA. Patient on Subutex taper which started today. Patient received PRN vistaril (twice) bentyl and ibuprofen this shift, effective. Most recent COWS: 10, reports anxiety, tremors, body aches, restlessness. Noted patient with pupil dilation and goose bumps. Compliant with his medications. Patient stayed in his room for the most part. Patient was encouraged to attend groups. Ambulating with steady gait, no falls noted. gas fitter apprenticeostomy care nurse will continue to monitor patient.
--- NOTE | 2017-09-21 19:20 | NUR ---
START OF SHIFT Patient is a 27-year-old male admitted on 09/19/17 for heroin withdrawal. Patient is currently on day 1 of 4-day Subutex taper, tolerating well. Patient's last COWS was 10 per day shift. Patient received PRN Bentyl, Vistaril and Motrin during day shift; effective per day nurse. Upon assessment, patient appears disheveled and flushed. Patient states he gets "cold and hot flashes." Patient's skin is warm and clammy, patient reports 5/10 back pain. Safety measures in place, bed locked in low position, side rails up x2, call light within reach. Will continue to monitor.
[2017-09-21 20:00] VITALS: BP 127/73
[2017-09-21] MEDS: QUETIAPINE FUMARATE 100 MG TABLET PO SCH (21:02)
--- NOTE | 2017-09-21 21:02 | NUR ---
PRN MOTRIN Patient reports back pain 5/10 on pain scale. PRN Motrin given PO. Safety measures in place, call light within reach. Will reassess for effectiveness.
--- NOTE | 2017-09-21 22:02 | NUR ---
PRN MOTRIN REASSESSMENT Patient reports improvement in back pain, 2/10. PRN Motrin effective. Safety measures in place, side rails up x2, bed locked in low position, call light within reach. Will continue to monitor.
--- NOTE | 2017-09-22 | NUR ---
VITALS REFUSED, COWS DEFERRED Patient refused midnight vitals, respirations even and unlabored, 14/min. COWS deferred due to patient sleeping; to be assessed and scored while patient is awake. Safety measures in place, side rails up x2, bed locked in low position, call light within reach. Will continue to monitor.
[2017-09-22 04:00] VITALS: BP 127/71
--- NOTE | 2017-09-22 04:00 | NUR ---
COWS DEFERRED COWS deferred due to patient sleeping; to be assessed while patient is awake. BP 127/71, HR 67, RR 14/min, O2 sat 100% on RA, 0/10 pain. Safety measures in place, call light within reach. Will continue to monitor.
--- NOTE | 2017-09-22 07:10 | NUR ---
END OF SHIFT Patient is a 27-year-old male admitted on 09/19/17 for heroin withdrawal. Patient is currently on day 2 of 4-day Subutex taper, tolerating well. Patient's last COWS was 10. Patient received PRN Motrin for backache, effective. Patient slept for 11 hours, total intake of 100 mL, void x0, stool x0. Safety measures in place, bed locked in low position, side rails up x2, call light within reach. Will endorse to day shift.
--- NOTE | 2017-09-22 07:11 | NUR ---
Start of Shift Notes: Endorsement received from night nurse. Received patient in his room. Asleep. Alert and oriented x 4. Appears disheveled and room unkempt. Empty water bottles, dirty linen and clothes on the floor. Encouraged maintenance of personal hygiene. He appears flushed. Complains of fatigue, and mild bone/joint aches. Patient is a 27 year old male admitted for opiate and methamphetamine dependence who was placed on a 4-day Subutex taper as ordered. No adverse reactions noted. Educated patient on his current plan of care for the day and his medication regimen. Encouraged oral fluid intake and encouraged group participation to learn new skills to prevent relapse.
[2017-09-22 08:00] VITALS: BP 124/69
[2017-09-22] MEDS: GABAPENTIN 300 MG CAPSULE PO SCH ×3 (08:50→20:55)
[2017-09-22] MEDS: METHOCARBAMOL 750 MG TABLET PO PRN (08:50)
[2017-09-22] MEDS: HYDROXYZINE PAMOATE 25 MG CAPSULE PO PRN (08:50)
[2017-09-22] MEDS: MULTIVITAMINS,THERAPEUTIC TABLET PO SCH (08:50)
[2017-09-22] MEDS: IBUPROFEN 400 MG TABLET PO PRN (08:50)
--- NOTE | 2017-09-22 08:50 | NUR ---
Motrin/Robaxin/Vistaril given: Patient's COWS 15, presented with 6/10 bone/joint aches, anxiety, restlessness, chills, hot flashes, appears flushed and moderate pupil dilation. Patient stated "I feel so anxious and irritable." Medicated patient with Motrin 400mg, Robaxin 750mg and Vistaril 50 mg as ordered. Will monitor for effectiveness.
[2017-09-22] MEDS ORDERED: BUPRENORPHINE HCL 2 MG TAB.SUBL SL SCH (09:00)
--- NOTE | 2017-09-22 09:50 | NUR ---
Re-assessment: Motrin/Robaxin and Vistaril Patient verbalized that pain is 3/10, and he feels more at ease. PRN Motrin, Robaxin and Vistaril were effective.
[2017-09-22 12:00] VITALS: BP 126/71
[2017-09-22] MEDS: BUPRENORPHINE HCL 2 MG TAB.SUBL SL SCH ×2 (14:09→20:55)
[2017-09-22 16:00] VITALS: BP 128/74
--- NOTE | 2017-09-22 19:11 | NUR ---
End of Shift Notes: Patient continues to be on 4-day Subutex taper as ordered. No adverse reactions noted. VS monitored closely. No significant abnormalities noted. Withdrawal symptoms were closely monitored. Initial COWS 15, patient presented with anxiety, agitation, myalgia, restlessness, chills, hot flashes, sweats, fatigue and pupil dilation. Medicated patient with Motrin, Robaxin and Vistaril as ordered at 0850 with help after 1 hour. Last COWS 8. Patient verbalizes that Subutex has been effective in reducing patients withdrawal symptoms. Needs encouragement to participate in group and socialize with his peers due to episodes of self isolation. All needs met and attended. Will continue to monitor closely.
[2017-09-22 20:00] VITALS: BP 121/67
--- NOTE | 2017-09-22 20:00 | NUR ---
Start of Shift Pt asleep on bed but arousable, AAOx4 and noted to be anxious. Pt observed to be isolating himself and c/o easily feeling overwhelmed and tired. Pt's room appears untidy, with some pieced of candy wrappers on the floor. Pt verbalized that he is "not into socializing at the moment." Pt continues to be on Subutex taper and verbalized that the taper is helping his withdrawal symptoms. With no SOB noted. COWS=9. Will continue to monitor.
[2017-09-22] MEDS: QUETIAPINE FUMARATE 100 MG TABLET PO SCH (20:55)
[2017-09-23] VITALS: BP 115/71
[2017-09-23 04:00] VITALS: BP 119/68
--- NOTE | 2017-09-23 07:15 | NUR ---
End of Shift Pt asleep on bed but arousable, AAOx4, continues to be anxious, withdrawn and isolated himself. PT verbalized that he has not slept for 4 days before coming for detox and he verbalized "feeling tired". Pt's room continues to appear untidy. Pt continues to be on Subutex taper and verbalized that the taper is helping his withdrawal symptoms. Fall, universal, seizure and safety prec in place. Call light within reach. COWS=7, slept for 11 hours. Endorsed to AM shift nurse for continuity of care.
--- NOTE | 2017-09-23 07:26 | NUR ---
Start of Shift Notes: Endorsement received from night nurse. Received patient in his room. Alert and oriented x 4. Appears disheveled and room unkempt. Affect is flat. Dirty linen and clothes on the floor. Encouraged maintenance of personal hygiene. He appears flushed. Complains of fatigue, and mild bone/joint aches. Patient is a 27 year old male admitted for opiate and methamphetamine withdrawal who was placed on a 4-day Subutex taper as ordered. No adverse reactions noted. Educated patient on his current plan of care for the day and his medication regimen. Encouraged oral fluid intake and encouraged group participation to learn new skills to prevent relapse.
[2017-09-23 08:00] VITALS: BP 128/74
[2017-09-23] MEDS: IBUPROFEN 400 MG TABLET PO PRN ×2 (09:34→20:51)
[2017-09-23] MEDS: BUPRENORPHINE HCL 2 MG TAB.SUBL SL SCH ×3 (09:34→20:51)
[2017-09-23] MEDS: GABAPENTIN 300 MG CAPSULE PO SCH ×3 (09:34→20:51)
--- NOTE | 2017-09-23 09:34 | NUR ---
Motrin 400 mg PO/Robaxin 750 mg PO given: Patient noted with complain of 5/10 back pain and lower leg pain. Non-pharmacological interventions provided but ineffective. Medicated patient with Motrin 400 mg PO and Robaxin 750 mg PO as ordered. Will monitor for effectiveness.
[2017-09-23] MEDS: MULTIVITAMINS,THERAPEUTIC TABLET PO SCH (09:35)
[2017-09-23] MEDS: METHOCARBAMOL 750 MG TABLET PO PRN ×2 (09:35→20:51)
--- NOTE | 2017-09-23 10:34 | NUR ---
Re-assessment: Motrin and Robaxin Patient verbalizes that pain level is now 1/10. PRN Motrin and Robaxin were effective. Will continue to monitor.
--- NOTE | 2017-09-23 10:39 | NUR ---
Client prompted client to come to all groups/activities today to engage with others and not be isolated in his room. Therapist encouraged client to try to share his feeling/thoughts so he does not build up feelings/thoughts which may negatively impact him. Therapist encouraged client to also meet with therapist if they feel they cannot cope with going to group so they can have one/one therapy session to help process feelings/thoughts.
[2017-09-23 12:00] VITALS: BP 116/81
[2017-09-23 16:00] VITALS: BP 125/81
--- NOTE | 2017-09-23 19:20 | NUR ---
End of Shift Notes: Patient continues to be on 4-day Subutex taper as ordered. No adverse reactions noted. VS monitored closely. No significant abnormalities noted. Withdrawal symptoms were closely monitored. Initial COWS 12, patient presented with facial flushing, restlessness, pupil dilation, muscle aches, nasal stuffiness, anxiety and fine tremors. Medicated patient with Motrin 400 mg PO and Robaxin 750 mg PO at 0934 with help after 1 hour. Last COWS 7. Patient needs encouragement to participate in group and activities due to self isolation. Compliant with care and treatment. All needs met and attended. Will continue to monitor closely.
--- NOTE | 2017-09-23 19:30 | NUR ---
START OF SHIFT Patient is a 27-year-old male admitted on 09/19/17 for heroin withdrawal. Patient is currently on day 3 of 4-day Subutex taper, tolerating well. Patient's last COWS was 7 per day shift. Patient received PRN Robaxin and Motrin during day shift; effective per day nurse. Upon assessment, patient appears disheveled and unkempt. Patient has been withdrawn and has not been attending meetings. Patient reports anxiety and difficulty sleeping, and states he still has lower back pain 10/31. Safety measures in place, bed locked in low position, side rails up x2, call light within reach. Will continue to monitor.
[2017-09-23 20:00] VITALS: BP 132/82
[2017-09-23] MEDS: QUETIAPINE FUMARATE 100 MG TABLET PO SCH (20:51)
--- NOTE | 2017-09-23 20:51 | NUR ---
PRN ROBAXIN AND MOTRIN Patient reports lower back pain 4/10 and headache. PRN Robaxin and Motrin given PO. Safety measures in place, bed locked in low position, side rails up x2, call light within reach. Will monitor for effectiveness.
--- NOTE | 2017-09-23 21:51 | NUR ---
PRN ROBAXIN AND MOTRIN REASSESSMENT Patient reports no headache and lower back pain 2/10 on pain scale. PRN medications effective. Safety measures in place, call light within reach. Will continue to monitor.
[2017-09-24] VITALS: BP 122/74
--- NOTE | 2017-09-24 | NUR ---
COWS DEFERRED COWS deferred due to patient sleeping; to be assessed and scored while patient is awake. Respirations even and unlabored, 16/min, safety measures in place, call light within reach. Will continue to monitor.
[2017-09-24 04:00] VITALS: BP 133/82
--- NOTE | 2017-09-24 04:00 | NUR ---
COWS DEFERRED Patient is resting in bed with eyes closed, COWS deferred due to patient sleeping; to be assessed and scored while patient is awake. Safety measures in place, call light within reach. Will continue to monitor.
--- NOTE | 2017-09-24 07:13 | NUR ---
END OF SHIFT Patient is a 27-year-old male admitted on 09/19/17 for heroin withdrawal. Today is day 4 of his 4-day Subutex taper, tolerating well. Patient's last COWS was 9. Patient received PRN Robaxin and Motrin, both effective. Patient slept for 9 hours, total intake was 355 mL, void x1, stool x0. Safety measures in place, bed locked in low position, side rails up x2, call light within reach. Will endorse to day shift.
--- NOTE | 2017-09-24 07:40 | NUR ---
START OF SHIFT Received report from signaling project engineer nurse. Pt is lying in bed resting and easily arousable. He is a 27 yo male admitted to [facility] on 09/19 for opiate withdrawal. NKA, full code, regular diet. Pt has a h/o using heroin and meth. 4 day Subutex taper started on 09/21. He appears disheveled and he reports "I've just been sleeping a lot". Respirations even and unlabored. Skin is warm and moist. Safety measures in place.
[2017-09-24 08:00] VITALS: BP 122/74
[2017-09-24] MEDS ORDERED: BUPRENORPHINE HCL 2 MG TAB.SUBL SL SCH (09:00)
[2017-09-24] MEDS: GABAPENTIN 300 MG CAPSULE PO SCH ×3 (09:15→20:33)
[2017-09-24] MEDS: MULTIVITAMINS,THERAPEUTIC TABLET PO SCH (09:15)
[2017-09-24] MEDS ORDERED: DICY20TA28 PO (11:35)
[2017-09-24] MEDS ORDERED: METH-406 PO (11:35)
[2017-09-24] MEDS ORDERED: HYDR-3895 PO (11:35)
[2017-09-24] MEDS ORDERED: QUET100T PO (11:35)
[2017-09-24] MEDS ORDERED: GABA-534 PO (11:35)
[2017-09-24] MEDS ORDERED: CLON0.1T14 PO (11:35)
[2017-09-24 12:00] VITALS: BP 120/71
[2017-09-24] MEDS: METHOCARBAMOL 750 MG TABLET PO PRN ×2 (12:28→20:34)
--- NOTE | 2017-09-24 12:32 | NUR ---
PRN Robaxin Pt reports low back pain 12/31. PRN Robaxin administered.
--- NOTE | 2017-09-24 13:35 | NUR ---
PRN Robaxin reassessment PRN Robaxin effective. Pt's back pain level reduced to 2/10.
--- NOTE | 2017-09-24 15:52 | NUR ---
PRN Julien Pt reports stomach cramps. PRN Bentyl administered.
[2017-09-24] MEDS: DICYCLOMINE HCL 20 MG TABLET PO PRN (15:53)
[2017-09-24 16:30] VITALS: BP 121/79
--- NOTE | 2017-09-24 16:52 | NUR ---
PRN Bentyl reassessment PRN Bentyl effective. Pt reports stomach cramps are relieved.
--- NOTE | 2017-09-24 19:15 | NUR ---
END OF SHIFT Report provided to night shift supervisor nurse. Pt is lying in bed watching TV. He is a 27 yo male admitted to [facility] on 09/19 for opiate withdrawal. NKA, full code, regular diet. Pt has a h/o using heroin and meth. 4 day Subutex taper started on 09/21. Pt was not motivated to get out of bed throughout the day. He had body aches and stomach cramps. PRN Robaxin and Bentyl administered. He is scheduled for discharge tomorrow. Last COWS 5. Safety measures in place.
[2017-09-24 20:00] VITALS: BP 92/56
--- NOTE | 2017-09-24 20:00 | NUR ---
START OF SHIFT NOTE RECEIVED REPORT FROM DAY SHIFT NURSE. PATIENT IS A 27 YEAR OLD MALE ADMITTED FOR OPIATE WITHDRAWAL. PATIENT COMPLETED 4 DAY SUBUTEX TAPER. PATIENT IS MEDICALLY CLEARED TO BE DISCHARGE TOMORROW. PATIENT WAS GIVEN PRN BENTYL AND ROBAXIN. LAST COWS 5. RECEIVED PATIENT IN THE ROOM. PATIENT REPORTS ANXIETY , HOT FLUSHES AND BACK PAIN 5/10. PATIENT DID NOT ATTEND GROUP. SAFETY MEASURES IN PLACE. CALL LIGHT IN REACH. WILL CONTINUE TO MONITOR
[2017-09-24] MEDS: IBUPROFEN 400 MG TABLET PO PRN (20:33)
[2017-09-24] MEDS: QUETIAPINE FUMARATE 100 MG TABLET PO SCH (20:33)
--- NOTE | 2017-09-24 20:33 | NUR ---
PRN ROBAXIN AND MOTRIN ADMINISTRATION PATIENT C/O BACK PAIN. WILL MONITOR FOR EFFECTIVENESS
--- NOTE | 2017-09-24 21:33 | NUR ---
PRN MOTRIN AND ROBAXIN RE-ASSESSMENT PATIENT STATES MOTRIN AND ROBAXIN HELPFUL AND EFFECTIVE. NO MEJIA THIS TIME. WILL CONTINUE TO MONITOR.
--- NOTE | 2017-09-25 | NUR ---
COWS DEFERRED PATIENT SLEEPING. VS REFUSED. RESPIRATION EVEN AND UNLABORED. WILL CONTINUE TO MONITOR
--- NOTE | 2017-09-25 04:00 | NUR ---
COWS DEFERRED PATIENT SLEEPING. VS REFUSED. RESPIRATION EVEN AND UNLABORED. WILL CONTINUE TO MONITOR
--- NOTE | 2017-09-25 07:00 | NUR ---
DISCHARGE NOTE PATIENT LEFT THE UNIT AT 0700 . RETURN ALL BELONGINGS TO PATIENT. PATIENT LEFT ALERT AND ORIENTED X 4. VS BP-137/88 T-98.0 P-77 R-16 PA-0/10 SpO2 100% . DISCHARGE INSTRUCTIONS GIVEN AND HOME MEDICATION RETURN TO PATIENT.
== END 2017-09-25 07:00 | disposition other institution (70) | DRG 895 ==
LOC: SRC 20:43
PROVIDERS: ADMIT Internal Medicine; ATTEND Internal Medicine
PROC: HZ2ZZZZ Detoxification Services for Substance Abuse Treatment (ICD-10-PCS; principal; 2017-09-19)
PROC: HZ31ZZZ Individual Counseling for Substance Abuse Treatment, Behavioral (ICD-10-PCS; 2017-09-21)
PROC: HZ41ZZZ Group Counseling for Substance Abuse Treatment, Behavioral (ICD-10-PCS; 2017-09-22)
DX: F11.23 Opioid dependence with withdrawal (principal); F15.229 Other stimulant dependence with intoxication, unspecified; F41.9 Anxiety disorder, unspecified; Z79.899 Other long term (current) drug therapy; Z82.49 Family history of ischemic heart disease and other diseases of the circulatory system; Z81.1 Family history of alcohol abuse and dependence
CPT/HCPCS: 36415; 80307; 80324; 80361; 83690; 83735; 84443; 85025; 86592; 86705; 86803; 87340; 87806; G0480